=== PATIENT | male | born 1970 | race Caucasian/White ===

== ENCOUNTER 2021-08-21 09:23 | Inpatient (IN) | payer MEDICARE, MEDICAID ==
[2021-08-21] MEDS: Dextrose 5% in Water 1,000 ML IV SCH ×2 (11:15→21:05)
[2021-08-21] MEDS ORDERED: Atorvastatin Calcium 20 MG TAB PO SCH (11:44)
[2021-08-21] MEDS ORDERED: Levothyroxine Sodium 75 MCG TAB PO SCH (11:44)
[2021-08-21 16:49] LABS: Anion Gap 12 mmol/L (10-20); BUN (Urea Nitrogen) 38 mg/dL (8.4-25.7); Calc. Creatinine Clearance 49 mL/min (70-130); Calcium 8.5 mg/dL (7.8-10.44); Carbon Dioxide 30 mmol/L (22-29); Chloride 113 mmol/L (98-107); Glucose 143 mg/dL (70-105); Potassium 3.8 mmol/L (3.5-5.1); Sodium 151 mmol/L (136-145)
[2021-08-21] MEDS ORDERED: OXcarbazepine 300 MG TAB PO SCH (18:00)
[2021-08-21] MEDS ORDERED: Cholecalciferol 1,000 UNITS (25 MCG) TAB PER TUBE SCH (18:15)
[2021-08-21] MEDS ORDERED: Venlafaxine HCl XR 150 MG CAP PO SCH (18:15)
[2021-08-21] MEDS: Atorvastatin Calcium 20 MG TAB PER TUBE SCH (21:06)
[2021-08-22] MEDS: Dextrose 5% in Water 1,000 ML IV SCH ×3 (04:17→23:16)
[2021-08-22 04:20] VITALS: BMI 25.9
[2021-08-22 04:49] LABS: Anion Gap 11 mmol/L (10-20); BUN (Urea Nitrogen) 31 mg/dL (8.4-25.7); Calc. Creatinine Clearance 57 mL/min (70-130); Calcium 8.4 mg/dL (7.8-10.44); Carbon Dioxide 30 mmol/L (22-29); Chloride 112 mmol/L (98-107); Glucose 118 mg/dL (70-105); Sodium 149 mmol/L (136-145)
[2021-08-22 05:02] LABS: #Eosinphils 0.1 thou/uL (0.0-0.7); #Lymphocytes 1.4 thou/uL (1.20-3.40); #Monocytes 0.7 thou/uL (0.11-0.59); #Neutrophils 3.3 thou/uL (1.40-6.50); %Basophils 0.7 % (0.0-1.0); %Eosinophils 1.3 % (0.0-10.0); %Monocytes 12.2 % (0.0-10.0); %Neutrophils 59.8 % (42.0-75.0); Hemoglobin 11.4 g/dL (14.0-18.0); Mean Corpuscular HGB CONC 30.8 g/dL (32.0-36.0); Mean Corpuscular Hemoglobin 33.3 pg (27.0-31.0); Mean Platelet Volume 9.5 fL (7.4-10.4); Platelet Count 225 thou/uL (130-400); RBC Distribution Width 15.6 % (11.5-14.5); Red Blood Cell (RBC) Count 3.42 mill/uL (4.70-6.10); White Blood Cell (WBC) Count 5.5 thou/uL (4.8-10.8)
[2021-08-22] MEDS: Levothyroxine Sodium 75 MCG TAB PER TUBE SCH (06:03)
[2021-08-22] MEDS: Venlafaxine HCl XR 150 MG CAP PO SCH (09:14)
[2021-08-22] MEDS: Cholecalciferol 1,000 UNITS (25 MCG) TAB PER TUBE SCH (09:14)
[2021-08-22] MEDS: OXcarbazepine 300 MG TAB PO SCH (09:14)
[2021-08-22] MEDS: Silodosin 8 MG CAP PO SCH (09:53)
[2021-08-22] MEDS: Atorvastatin Calcium 20 MG TAB PER TUBE SCH (21:04)
[2021-08-23] MEDS: Levothyroxine Sodium 75 MCG TAB PER TUBE SCH (05:08)
[2021-08-23 05:49] LABS: Anion Gap 14 mmol/L (10-20); BUN (Urea Nitrogen) 27 mg/dL (8.4-25.7); Calc. Creatinine Clearance 62 mL/min (70-130); Calcium 8.3 mg/dL (7.8-10.44); Carbon Dioxide 25 mmol/L (22-29); Chloride 107 mmol/L (98-107); Glucose 100 mg/dL (70-105); Potassium 4.6 mmol/L (3.5-5.1); Sodium 141 mmol/L (136-145)
[2021-08-23] MEDS: Venlafaxine HCl XR 150 MG CAP PO SCH (09:09)
[2021-08-23] MEDS: Cholecalciferol 1,000 UNITS (25 MCG) TAB PER TUBE SCH (09:09)
[2021-08-23] MEDS: OXcarbazepine 300 MG TAB PO SCH (09:09)
[2021-08-23] MEDS: Silodosin 8 MG CAP PO SCH (09:09)
[2021-08-23] MEDS: Dextrose 5% in Water 1,000 ML IV SCH (11:08)
[2021-08-23 20:04] VITALS: BP 110/62; TEMP 98.7
== END 2021-08-23 18:09 | DRG 640 ==
LOC: 3SE 11:21 → 2NO 22:10
PROVIDERS: ADMIT Internal Medicine; ATTEND Hospitalist
DX: E87.0 Hyperosmolality and hypernatremia (principal); G93.41 Metabolic encephalopathy; E03.9 Hypothyroidism, unspecified; E78.5 Hyperlipidemia, unspecified; F31.9 Bipolar disorder, unspecified; F20.9 Schizophrenia, unspecified; R06.81 Apnea, not elsewhere classified; I10 Essential (primary) hypertension; N40.0 Benign prostatic hyperplasia without lower urinary tract symptoms; Q90.9 Down syndrome, unspecified; Z93.1 Gastrostomy status
CPT/HCPCS: 36415; 36416; 70450; 71045; 80048; 80053; 82550; 82553; 83735; 83880; 84484; 85025; 85610; 85730; 93005; 94760; J7070; U0003; U0005

== ENCOUNTER 2021-09-06 04:55 | Inpatient (IN) | payer MEDICARE, MEDICAID ==
[2021-09-06 05:28] LABS: #Lymphocytes 0.9 thou/uL (1.20-3.40); #Neutrophils 13.1 thou/uL (1.40-6.50); %Basophils 0.1 % (0.0-1.0); %Eosinophils 0.2 % (0.0-10.0); %Lymphocytes 5.9 % (21.0-51.0); %Monocytes 6.7 % (0.0-10.0); Hemoglobin 9.5 g/dL (14.0-18.0); Mean Corpuscular HGB CONC 33.7 g/dL (32.0-36.0); Mean Platelet Volume 9.6 fL (7.4-10.4); Platelet Count 202 thou/uL (130-400); RBC Distribution Width 15.5 % (11.5-14.5); Red Blood Cell (RBC) Count 2.71 mill/uL (4.70-6.10)
[2021-09-06] MEDS ORDERED: Fentanyl 100 MCG/2 ML VIAL ONE (06:11)
[2021-09-06] MEDS ORDERED: Dextrose 5% in Water 1,000 ML IV PRN (06:15)
[2021-09-06] MEDS ORDERED: Dextrose 50% Abboject 50 ML SYRINGE SLOW IVP PRN (06:15)
[2021-09-06] MEDS ORDERED: Morphine 4 MG/ML VIAL SLOW IVP PRN (06:15)
[2021-09-06] MEDS ORDERED: hydrALAZINE 20 MG/ML VIAL SLOW IVP PRN (06:15)
[2021-09-06] MEDS ORDERED: traMADol HCl 50 MG TAB PO PRN ×2 (06:21)
[2021-09-06 08:40] LABS: SARS-CoV-2 NAA Rapid Test Not Detected (NotDetected)
[2021-09-06] MEDS: Senokot S 8.6-50 MG TAB PO SCH ×2 (11:08→20:49)
[2021-09-06] MEDS: Tamsulosin HCl 0.4 MG CAP PO SCH (11:08)
[2021-09-06] MEDS: Polyethylene Glycol 3350 17 GM Packet PO SCH (11:08)
[2021-09-06] MEDS: Acetaminophen 650 MG/20.3 ML UDCUP PER TUBE SCH ×3 (11:09→18:05)
[2021-09-06] MEDS: Sodium Chloride 0.9% 1,000 ML IV SCH ×3 (11:09→19:49)
[2021-09-06] MEDS: Famotidine 20 MG TAB PO SCH ×2 (11:09→20:49)
[2021-09-06] MEDS ORDERED: Docusate Sodium 100 MG/10 ML UDCUP PER TUBE SCH (12:01)
[2021-09-06] MEDS ORDERED: FLU VACC QS2021-22(6MOS UP)/PF 60 MCG/0.5 ML SYRINGE IM ONE (12:15)
[2021-09-06 13:41] LABS: Hemoglobin 8.8 g/dL (14.0-18.0); Platelet Count 173 thou/uL (130-400)
[2021-09-06] MEDS: Ondansetron PF 4 MG/2 ML Vial IVP PRN (14:37)
[2021-09-06] MEDS ORDERED: Fleet Enema 133 ML BOT PR SCH (15:45)
[2021-09-06 18:56] LABS: Hemoglobin 8.7 g/dL (14.0-18.0); Platelet Count 172 thou/uL (130-400)
[2021-09-06 19:46] VITALS: BMI 28.0
[2021-09-07] MEDS: Acetaminophen 650 MG/20.3 ML UDCUP PER TUBE SCH ×4 (00:22→17:41)
[2021-09-07] MEDS: Ondansetron PF 4 MG/2 ML Vial IVP PRN ×3 (03:28→19:30)
[2021-09-07 04:16] LABS: Platelet Count 182 thou/uL (130-400)
[2021-09-07] MEDS: Sodium Chloride 0.9% 1,000 ML IV SCH ×3 (06:13→19:15)
[2021-09-07] MEDS: Famotidine 20 MG TAB PO SCH ×2 (08:43→20:34)
[2021-09-07] MEDS: Tamsulosin HCl 0.4 MG CAP PO SCH (08:43)
[2021-09-07] MEDS: Senokot S 8.6-50 MG TAB PO SCH ×2 (08:43→20:34)
[2021-09-07] MEDS: Polyethylene Glycol 3350 17 GM Packet PO SCH (08:44)
[2021-09-07 12:01] LABS: #Lymphocytes 1.5 thou/uL (1.20-3.40); #Monocytes 2.1 thou/uL (0.11-0.59); #Neutrophils 10.9 thou/uL (1.40-6.50); %Basophils 0.2 % (0.0-1.0); %Eosinophils 0.2 % (0.0-10.0); %Monocytes 14.2 % (0.0-10.0); %Neutrophils 75.4 % (42.0-75.0); Hemoglobin 7.1 g/dL (14.0-18.0); Mean Corpuscular HGB CONC 33.5 g/dL (32.0-36.0); Mean Corpuscular Hemoglobin 34.9 pg (27.0-31.0); Mean Platelet Volume 9.3 fL (7.4-10.4); Platelet Count 170 thou/uL (130-400); RBC Distribution Width 15.5 % (11.5-14.5); Red Blood Cell (RBC) Count 2.02 mill/uL (4.70-6.10); White Blood Cell (WBC) Count 14.5 thou/uL (4.8-10.8)
[2021-09-07 12:28] LABS: Anion Gap 15 mmol/L (10-20); BUN (Urea Nitrogen) 44 mg/dL (8.4-25.7); Calc. Creatinine Clearance 36 mL/min (70-130); Calcium 7.8 mg/dL (7.8-10.44); Carbon Dioxide 22 mmol/L (22-29); Chloride 108 mmol/L (98-107); Glucose 80 mg/dL (70-105); Sodium 141 mmol/L (136-145)
[2021-09-07 13:23] LABS: Bacteria/HPF None Seen HPF (None Seen); Bilirubin Negative (Negative); Blood, Urine Trace (Negative); Clarity Clear (Clear); Glucose, Urine (Dipstick) Normal (Negative); Ketone, Urine Negative (Negative); Leukocyte Negative Leu/uL (Negative); Nitrite Negative (Negative); Protein, Urine (Dipstick) Negative (Neg-Trace); RBC/HPF 0-3 HPF (0-3); Specific Gravity, Urine 1.013 (1.002-1.036); Squamous Epithelial 0-3 HPF (0-3); Urobilinogen Normal mg/dL (Less than 2); WBC/HPF 0-3 HPF (0-3)
[2021-09-07 13:24] LABS: Urine Culture Reflex No No
[2021-09-07] MEDS ORDERED: Piperacillin/Tazobactam 3.375 GM in Sodium Chloride 0.9% 100 ML IVPB SCH ×2 (15:45→16:15)
[2021-09-07] MEDS ORDERED: Phytonadione 10 MG/ML AMP SLOW IVP SCH (18:15)
[2021-09-07] MEDS ORDERED: ADMIXTURE FEE IV SCH (18:30)
[2021-09-07] MEDS ORDERED: HUMAN PROTHROMBIN COMPLX IV SCH ×2 (18:30→19:00)
[2021-09-07] MEDS ORDERED: [UNRECOGNIZED DRUG - OTHER] IV SCH (19:00)
[2021-09-07] MEDS ORDERED: HUM PROTHROMBIN CPLX IV SCH (19:00)
[2021-09-07] MEDS: Piperacillin/Tazobactam 3.375 GM in Sodium Chloride 0.9% 100 ML IVPB SCH (20:34)
[2021-09-08] MEDS: Acetaminophen 650 MG/20.3 ML UDCUP PER TUBE SCH ×5 (00:04→23:58)
[2021-09-08] MEDS: Piperacillin/Tazobactam 3.375 GM in Sodium Chloride 0.9% 100 ML IVPB SCH ×3 (05:19→20:48)
[2021-09-08 06:05] LABS: #Lymphocytes 1.2 thou/uL (1.20-3.40); #Monocytes 1.4 thou/uL (0.11-0.59); #Neutrophils 9.4 thou/uL (1.40-6.50); %Basophils 0.1 % (0.0-1.0); %Eosinophils 0.2 % (0.0-10.0); %Lymphocytes 10.3 % (21.0-51.0); %Monocytes 11.3 % (0.0-10.0); %Neutrophils 78.2 % (42.0-75.0); Hemoglobin 6.5 g/dL (14.0-18.0); Mean Corpuscular HGB CONC 33.7 g/dL (32.0-36.0); Mean Corpuscular Hemoglobin 34.5 pg (27.0-31.0); Mean Platelet Volume 9.8 fL (7.4-10.4); Platelet Count 146 thou/uL (130-400); RBC Distribution Width 16.8 % (11.5-14.5); Red Blood Cell (RBC) Count 1.87 mill/uL (4.70-6.10)
[2021-09-08 06:14] LABS: Anion Gap 13 mmol/L (10-20); BUN (Urea Nitrogen) 36 mg/dL (8.4-25.7); Calc. Creatinine Clearance 46 mL/min (70-130); Carbon Dioxide 23 mmol/L (22-29); Chloride 113 mmol/L (98-107); Glucose 90 mg/dL (70-105); Potassium 3.8 mmol/L (3.5-5.1); Sodium 145 mmol/L (136-145)
[2021-09-08] MEDS: Famotidine 20 MG TAB PO SCH ×2 (09:10→20:49)
[2021-09-08] MEDS: Polyethylene Glycol 3350 17 GM Packet PO SCH (09:11)
[2021-09-08] MEDS: Tamsulosin HCl 0.4 MG CAP PO SCH (09:11)
[2021-09-08] MEDS: Senokot S 8.6-50 MG TAB PO SCH ×2 (09:11→20:49)
[2021-09-08] MEDS: Sodium Chloride 0.9% 1,000 ML IV SCH (09:12)
[2021-09-08] MEDS: Sodium Chloride 0.45% 1,000 ML IV SCH ×2 (13:25→20:49)
[2021-09-08] MEDS ORDERED: Iopamidol-370 76% 500 ML 1 ML ONE (15:52)
[2021-09-08 16:09] LABS: Hemoglobin 7.6 g/dL (14.0-18.0); Mean Corpuscular HGB CONC 34.2 g/dL (32.0-36.0); Mean Corpuscular Hemoglobin 34.3 pg (27.0-31.0); Mean Platelet Volume 9.3 fL (7.4-10.4); Platelet Count 132 thou/uL (130-400); RBC Distribution Width 17.7 % (11.5-14.5); White Blood Cell (WBC) Count 10.1 thou/uL (4.8-10.8)
[2021-09-09] MEDS: Piperacillin/Tazobactam 3.375 GM in Sodium Chloride 0.9% 100 ML IVPB SCH ×2 (03:30→12:45)
[2021-09-09] MEDS: Sodium Chloride 0.45% 1,000 ML IV SCH (06:02)
[2021-09-09] MEDS: Acetaminophen 650 MG/20.3 ML UDCUP PER TUBE SCH ×4 (06:02→23:34)
[2021-09-09] MEDS: Cyclobenzaprine 10 MG TAB PO PRN ×2 (06:07→22:13)
[2021-09-09 06:55] LABS: Hemoglobin 7.5 g/dL (14.0-18.0); Mean Corpuscular HGB CONC 34.9 g/dL (32.0-36.0); Mean Platelet Volume 9.7 fL (7.4-10.4); Platelet Count 141 thou/uL (130-400); RBC Distribution Width 17.3 % (11.5-14.5); Red Blood Cell (RBC) Count 2.13 mill/uL (4.70-6.10); White Blood Cell (WBC) Count 9.2 thou/uL (4.8-10.8)
[2021-09-09 07:33] LABS: Anion Gap 14 mmol/L (10-20); BUN (Urea Nitrogen) 26 mg/dL (8.4-25.7); Calc. Creatinine Clearance 51 mL/min (70-130); Calcium 7.8 mg/dL (7.8-10.44); Carbon Dioxide 23 mmol/L (22-29); Chloride 119 mmol/L (98-107); Glucose 98 mg/dL (70-105); Potassium 3.2 mmol/L (3.5-5.1); Sodium 153 mmol/L (136-145)
[2021-09-09] MEDS: Polyethylene Glycol 3350 17 GM Packet PO SCH (09:25)
[2021-09-09] MEDS: Senokot S 8.6-50 MG TAB PO SCH ×2 (09:25→20:28)
[2021-09-09] MEDS: Famotidine 20 MG TAB PO SCH ×2 (09:26→20:28)
[2021-09-09] MEDS: Tamsulosin HCl 0.4 MG CAP PO SCH (09:26)
[2021-09-09 12:33] LABS: #Lymphocytes 1.2 thou/uL (1.20-3.40); #Monocytes 1.1 thou/uL (0.11-0.59); #Neutrophils 7.1 thou/uL (1.40-6.50); %Basophils 0.2 % (0.0-1.0); %Eosinophils 0.2 % (0.0-10.0); %Monocytes 11.3 % (0.0-10.0); %Neutrophils 75.4 % (42.0-75.0); Hemoglobin 8.1 g/dL (14.0-18.0); Mean Corpuscular HGB CONC 34.6 g/dL (32.0-36.0); Mean Corpuscular Hemoglobin 34.8 pg (27.0-31.0); Mean Platelet Volume 9.9 fL (7.4-10.4); Platelet Count 154 thou/uL (130-400); RBC Distribution Width 17.5 % (11.5-14.5); Red Blood Cell (RBC) Count 2.34 mill/uL (4.70-6.10); White Blood Cell (WBC) Count 9.4 thou/uL (4.8-10.8)
[2021-09-09 12:54] LABS: Iron 82 ug/dL (65-175); Iron Binding Capacity, Total 164 mcg/dL (261-462)
[2021-09-09 13:24] LABS: Ferritin 367.14 ng/mL (22-322); Thyroid Stimulating Hormone 1.6721 uIU/mL (0.35-4.94)
[2021-09-09] MEDS ORDERED: Dextrose 5% in Water 1,000 ML IV SCH (15:15)
[2021-09-09] MEDS: Amoxicillin/Potassium Clav 875 MG TAB PO SCH (20:28)
[2021-09-10] MEDS: Acetaminophen 650 MG/20.3 ML UDCUP PER TUBE SCH ×3 (05:55→18:47)
[2021-09-10 06:01] LABS: #Monocytes 1.2 thou/uL (0.11-0.59); #Neutrophils 7.4 thou/uL (1.40-6.50); %Basophils 0.2 % (0.0-1.0); %Eosinophils 0.2 % (0.0-10.0); %Lymphocytes 10.6 % (21.0-51.0); %Monocytes 12.2 % (0.0-10.0); %Neutrophils 76.7 % (42.0-75.0); Hemoglobin 8.4 g/dL (14.0-18.0); Mean Corpuscular HGB CONC 33.8 g/dL (32.0-36.0); Mean Corpuscular Hemoglobin 34.5 pg (27.0-31.0); Mean Platelet Volume 9.4 fL (7.4-10.4); Platelet Count 181 thou/uL (130-400); RBC Distribution Width 17.4 % (11.5-14.5); Red Blood Cell (RBC) Count 2.43 mill/uL (4.70-6.10); White Blood Cell (WBC) Count 9.7 thou/uL (4.8-10.8)
[2021-09-10 06:39] LABS: ALT (SGPT) 31 U/L (8-55); AST (SGOT) 40 U/L (5-34); Albumin 2.8 g/dL (3.5-5.0); Alkaline Phosphatase 18 U/L (40-110); Anion Gap 13 mmol/L (10-20); BUN (Urea Nitrogen) 23 mg/dL (8.4-25.7); Calc. Creatinine Clearance 56 mL/min (70-130); Calcium 7.9 mg/dL (7.8-10.44); Carbon Dioxide 24 mmol/L (22-29); Chloride 125 mmol/L (98-107); Globulin 3.2 g/dL (2.4-3.5); Glucose 119 mg/dL (70-105); Potassium 3.5 mmol/L (3.5-5.1); Sodium 158 mmol/L (136-145)
[2021-09-10] MEDS: Famotidine 20 MG TAB PO SCH ×2 (08:11→20:40)
[2021-09-10] MEDS: Senokot S 8.6-50 MG TAB PO SCH ×2 (08:11→20:40)
[2021-09-10] MEDS: Amoxicillin/Potassium Clav 875 MG TAB PO SCH ×2 (08:11→20:40)
[2021-09-10] MEDS: Polyethylene Glycol 3350 17 GM Packet PO SCH (08:11)
[2021-09-10] MEDS: Tamsulosin HCl 0.4 MG CAP PO SCH (08:11)
[2021-09-10] MEDS: Dextrose 5% in Water 1,000 ML IV SCH ×2 (13:47→18:47)
[2021-09-11] MEDS: Acetaminophen 650 MG/20.3 ML UDCUP PER TUBE SCH ×4 (01:06→20:41)
[2021-09-11] MEDS: Dextrose 5% in Water 1,000 ML IV SCH ×2 (01:32→18:12)
[2021-09-11 05:51] LABS: #Eosinphils 0.1 thou/uL (0.0-0.7); #Lymphocytes 1.2 thou/uL (1.20-3.40); #Monocytes 1.2 thou/uL (0.11-0.59); #Neutrophils 7.2 thou/uL (1.40-6.50); %Basophils 0.3 % (0.0-1.0); %Lymphocytes 12.1 % (21.0-51.0); %Monocytes 12.7 % (0.0-10.0); %Neutrophils 73.9 % (42.0-75.0); Hemoglobin 8.8 g/dL (14.0-18.0); Mean Corpuscular HGB CONC 32.3 g/dL (32.0-36.0); Mean Corpuscular Hemoglobin 33.7 pg (27.0-31.0); Mean Platelet Volume 9.6 fL (7.4-10.4); Platelet Count 204 thou/uL (130-400); RBC Distribution Width 17.8 % (11.5-14.5); Red Blood Cell (RBC) Count 2.62 mill/uL (4.70-6.10); White Blood Cell (WBC) Count 9.7 thou/uL (4.8-10.8)
[2021-09-11 06:12] LABS: Albumin 2.8 g/dL (3.5-5.0); Alkaline Phosphatase 18 U/L (40-110); Anion Gap 14 mmol/L (10-20); BUN (Urea Nitrogen) 23 mg/dL (8.4-25.7); Calc. Creatinine Clearance 62 mL/min (70-130); Carbon Dioxide 23 mmol/L (22-29); Chloride 120 mmol/L (98-107); Globulin 3.4 g/dL (2.4-3.5); Glucose 112 mg/dL (70-105); Potassium 3.7 mmol/L (3.5-5.1); Protein, Total 6.2 g/dL (6.0-8.3); Sodium 153 mmol/L (136-145)
[2021-09-11 06:13] LABS: ALT (SGPT) 31 U/L (8-55); AST (SGOT) 32 U/L (5-34)
[2021-09-11] MEDS: Polyethylene Glycol 3350 17 GM Packet PO SCH (09:48)
[2021-09-11] MEDS: Senokot S 8.6-50 MG TAB PO SCH ×2 (09:48→20:41)
[2021-09-11] MEDS: Tamsulosin HCl 0.4 MG CAP PO SCH (09:49)
[2021-09-11] MEDS: Famotidine 20 MG TAB PO SCH ×2 (09:49→20:41)
[2021-09-11] MEDS: Amoxicillin/Potassium Clav 875 MG TAB PO SCH ×2 (09:49→20:41)
[2021-09-11 11:32] LABS: Anion Gap 14 mmol/L (10-20); BUN (Urea Nitrogen) 22 mg/dL (8.4-25.7); Calc. Creatinine Clearance 68 mL/min (70-130); Calcium 8.2 mg/dL (7.8-10.44); Carbon Dioxide 22 mmol/L (22-29); Chloride 121 mmol/L (98-107); Glucose 108 mg/dL (70-105); Potassium 3.5 mmol/L (3.5-5.1); Sodium 153 mmol/L (136-145)
[2021-09-11] MEDS: Cyclobenzaprine 10 MG TAB PO PRN (20:41)
[2021-09-12] MEDS: Acetaminophen 650 MG/20.3 ML UDCUP PER TUBE SCH ×3 (00:40→12:53)
[2021-09-12 06:39] LABS: Anion Gap 15 mmol/L (10-20); BUN (Urea Nitrogen) 23 mg/dL (8.4-25.7); Calc. Creatinine Clearance 71 mL/min (70-130); Carbon Dioxide 20 mmol/L (22-29); Chloride 116 mmol/L (98-107); Glucose 101 mg/dL (70-105); Potassium 4.4 mmol/L (3.5-5.1); Sodium 147 mmol/L (136-145)
[2021-09-12] MEDS: Dextrose 5% in Water 1,000 ML IV SCH (07:19)
[2021-09-12] MEDS: Senokot S 8.6-50 MG TAB PO SCH (08:53)
[2021-09-12] MEDS: Tamsulosin HCl 0.4 MG CAP PO SCH (08:53)
[2021-09-12] MEDS: Amoxicillin/Potassium Clav 875 MG TAB PO SCH (08:53)
[2021-09-12] MEDS: Famotidine 20 MG TAB PO SCH (08:53)
[2021-09-12 10:37] LABS: Hemoglobin 8.5 g/dL (14.0-18.0)
[2021-09-12] MEDS: Polyethylene Glycol 3350 17 GM Packet PO SCH (12:52)
[2021-09-12 15:56] VITALS: BP 97/65; TEMP 98.3
== END 2021-09-12 16:00 | DRG 913 ==
LOC: ERS 04:55 → SURG B 06:15 → OBSVTOIN 09-07 19:18
PROVIDERS: ADMIT Internal Medicine; ATTEND Internal Medicine
PROC: 30233N1 Transfusion of Nonautologous Red Blood Cells into Peripheral Vein, Percutaneous Approach (ICD-10-PCS; 2021-09-07)
PROC: 30283B1 Transfusion of Nonautologous 4-Factor Prothrombin Complex Concentrate into Vein, Percutaneous Approach (ICD-10-PCS; 2021-09-07)
PROC: 30233L1 Transfusion of Nonautologous Fresh Plasma into Peripheral Vein, Percutaneous Approach (ICD-10-PCS; principal; 2021-09-08)
PROC: 30233K1 Transfusion of Nonautologous Frozen Plasma into Peripheral Vein, Percutaneous Approach (ICD-10-PCS; 2021-09-08)
DX: S36.892A Contusion of other intra-abdominal organs, initial encounter (principal); G93.41 Metabolic encephalopathy; R57.8 Other shock; D62 Acute posthemorrhagic anemia; N17.9 Acute kidney failure, unspecified; E87.0 Hyperosmolality and hypernatremia; R65.10 Systemic inflammatory response syndrome (SIRS) of non-infectious origin without acute organ dysfunction; D68.9 Coagulation defect, unspecified; E87.1 Hypo-osmolality and hyponatremia; E46 Unspecified protein-calorie malnutrition; S36.899A Unspecified injury of other intra-abdominal organs, initial encounter; N40.0 Benign prostatic hyperplasia without lower urinary tract symptoms; E03.9 Hypothyroidism, unspecified; I10 Essential (primary) hypertension; E78.5 Hyperlipidemia, unspecified; F20.9 Schizophrenia, unspecified; K59.00 Constipation, unspecified; R33.9 Retention of urine, unspecified; W19.XXXA Unspecified fall, initial encounter; F31.9 Bipolar disorder, unspecified; Z20.822 Contact with and (suspected) exposure to COVID-19; Z86.718 Personal history of other venous thrombosis and embolism; Z88.8 Allergy status to other drugs, medicaments and biological substances; Z86.711 Personal history of pulmonary embolism; Y92.89 Other specified places as the place of occurrence of the external cause; Q90.9 Down syndrome, unspecified; Z79.01 Long term (current) use of anticoagulants
CPT/HCPCS: 36415; 36430; 74177; 80048; 80053; 81001; 82607; 82728; 82746; 83540; 83550; 84443; 85014; 85018; 85025; 85027; 86850; 86900; 86901; 87040; 93970; 96374; 96375; 96376; G0378; J2405; J2543; J3010; J3430; J3490; J7050; J7070; J7168; P9016; P9059; Q9967; U0002; U0003; U0005

== ENCOUNTER 2021-10-27 14:36 | Observation (INO) | payer MEDICARE, MEDICAID ==
[2021-10-27 15:36] LABS: #Basophils 0.1 thou/uL (0.0-0.2); #Eosinphils 0.1 thou/uL (0.0-0.7); #Lymphocytes 1.5 thou/uL (1.20-3.40); #Monocytes 0.8 thou/uL (0.11-0.59); %Basophils 1.5 % (0.0-1.0); %Eosinophils 1.7 % (0.0-10.0); %Lymphocytes 27.1 % (21.0-51.0); %Monocytes 14.9 % (0.0-10.0); %Neutrophils 54.9 % (42.0-75.0); Hemoglobin 12.3 g/dL (14.0-18.0); Mean Platelet Volume 8.5 fL (7.4-10.4); Platelet Count 248 thou/uL (130-400); RBC Distribution Width 15.5 % (11.5-14.5); Red Blood Cell (RBC) Count 3.42 mill/uL (4.70-6.10); White Blood Cell (WBC) Count 5.5 thou/uL (4.8-10.8)
[2021-10-27 16:29] LABS: ALT (SGPT) 14 U/L (8-55); AST (SGOT) 21 U/L (5-34); Albumin 3.2 g/dL (3.5-5.0); Alkaline Phosphatase 26 U/L (40-110); Anion Gap 15 mmol/L (10-20); BUN (Urea Nitrogen) 20 mg/dL (8.4-25.7); Bilirubin, Total 0.3 mg/dL (0.2-1.2); CK (CPK) 45 U/L (30-200); Calc. Creatinine Clearance 0 mL/min (70-130); Calcium 9.7 mg/dL (7.8-10.44); Carbon Dioxide 23 mmol/L (22-29); Chloride 106 mmol/L (98-107); Globulin 4.2 g/dL (2.4-3.5); Glucose 88 mg/dL (70-105); Potassium 3.9 mmol/L (3.5-5.1); Protein, Total 7.4 g/dL (6.0-8.3); Sodium 140 mmol/L (136-145)
[2021-10-27 17:17] LABS: Bilirubin Negative (Negative); Blood, Urine Negative (Negative); Clarity Clear (Clear); Glucose, Urine (Dipstick) Normal (Negative); Ketone, Urine Negative (Negative); Leukocyte Negative Leu/uL (Negative); Nitrite Negative (Negative); Protein, Urine (Dipstick) Negative (Neg-Trace); Specific Gravity, Urine 1.007 (1.002-1.036); Urobilinogen Normal mg/dL (Less than 2); pH, Urine 6.5 (5.0-9.0)
[2021-10-27] MEDS ORDERED: Fentanyl 100 MCG/2 ML VIAL ONE (17:20)
[2021-10-27 18:27] LABS: INR-International Normal Ratio 1.2; PTT 31.4 sec (22.9-36.1); Prothrombin Time 15.1 sec (12.0-14.7)
[2021-10-27 21:17] VITALS: BMI 23.5
[2021-10-27] MEDS ORDERED: Acetaminophen 650 MG/20.3 ML UDCUP PER TUBE PRN (22:32)
[2021-10-27] MEDS ORDERED: HYDROcodone/Acetaminophen 10/325 mg Tablet PO PRN (22:44)
[2021-10-27] MEDS ORDERED: Acetaminophen 325 MG TAB PO PRN (22:44)
[2021-10-27] MEDS ORDERED: Ondansetron PF 4 MG/2 ML Vial IVP PRN (22:44)
[2021-10-27] MEDS: Sodium Chloride 0.9% 1,000 ML IV SCH (23:22)
[2021-10-28] MEDS ORDERED: Lorazepam 2 MG/ML VIAL SLOW IVP PRN (01:53)
[2021-10-28] MEDS ORDERED: OXcarbazepine 300 MG TAB PER TUBE SCH ×3 (02:15→09:00)
[2021-10-28 04:51] LABS: Hemoglobin 11.2 g/dL (14.0-18.0); Mean Corpuscular Hemoglobin 35.7 pg (27.0-31.0); Mean Platelet Volume 8.4 fL (7.4-10.4); Platelet Count 235 thou/uL (130-400); RBC Distribution Width 15.3 % (11.5-14.5); Red Blood Cell (RBC) Count 3.14 mill/uL (4.70-6.10); White Blood Cell (WBC) Count 3.2 thou/uL (4.8-10.8)
[2021-10-28 05:02] LABS: ALT (SGPT) 14 U/L (8-55); AST (SGOT) 17 U/L (5-34); Albumin 2.9 g/dL (3.5-5.0); Alkaline Phosphatase 23 U/L (40-110); Anion Gap 13 mmol/L (10-20); BUN (Urea Nitrogen) 21 mg/dL (8.4-25.7); Bilirubin, Total 0.3 mg/dL (0.2-1.2); Calc. Creatinine Clearance 51 mL/min (70-130); Calcium 9.5 mg/dL (7.8-10.44); Carbon Dioxide 26 mmol/L (22-29); Chloride 106 mmol/L (98-107); Glucose 115 mg/dL (70-105); Potassium 3.6 mmol/L (3.5-5.1); Protein, Total 6.9 g/dL (6.0-8.3); Sodium 141 mmol/L (136-145)
[2021-10-28 05:24] LABS: Band 4 % (5-11); Eosinophils 4 % (0-10); Lymphocytes 27 % (21-51); MDiff Complete? YES; Monocytes 12 % (0-10); Neutrophil 52 % (42-75)
[2021-10-28] MEDS: Levothyroxine Sodium 75 MCG TAB PER TUBE SCH (05:29)
[2021-10-28] MEDS ORDERED: FLU VACC QS2021-22(6MOS UP)/PF 60 MCG/0.5 ML SYRINGE IM ONE (09:00)
[2021-10-28] MEDS: Heparin 5,000 UNITS/ML VIAL SC SCH ×3 (09:07→21:02)
[2021-10-28] MEDS: Folic Acid 1 MG TAB PER TUBE SCH (09:07)
[2021-10-28] MEDS: Atorvastatin Calcium 20 MG TAB PER TUBE SCH (09:07)
[2021-10-28] MEDS: Benztropine 1 MG TAB PER TUBE SCH ×2 (09:08→21:04)
[2021-10-28] MEDS: Silodosin 8 MG CAP PO SCH (09:08)
[2021-10-28] MEDS: Venlafaxine HCl XR 75 MG CAP PO SCH (09:08)
[2021-10-28] MEDS ORDERED: Lorazepam 2 MG/ML VIAL SLOW IVP SCH (12:00)
[2021-10-28 12:11] LABS: SARS-CoV-2 PCR by NAA Not Detected (NotDetected)
[2021-10-28] MEDS: Sodium Chloride 0.9% 1,000 ML IV SCH (16:10)
[2021-10-28] MEDS ORDERED: OXcarbazepine 300 MG TAB PO SCH (21:00)
[2021-10-28] MEDS: OXcarbazepine 300 MG TAB PER TUBE SCH (21:04)
[2021-10-29] MEDS: Levothyroxine Sodium 75 MCG TAB PER TUBE SCH (06:12)
[2021-10-29 07:55] VITALS: BP 105/73; TEMP 97.9
[2021-10-29 08:14] LABS: % Free PSA Greater than 30.0 % (.); Total PSA Less than 0.1 ng/mL (0.0-4.0)
[2021-10-29] MEDS: Benztropine 1 MG TAB PER TUBE SCH (08:52)
[2021-10-29] MEDS: OXcarbazepine 300 MG TAB PER TUBE SCH (08:53)
[2021-10-29] MEDS: Silodosin 8 MG CAP PO SCH (08:53)
[2021-10-29] MEDS: Atorvastatin Calcium 20 MG TAB PER TUBE SCH (08:53)
[2021-10-29] MEDS: Heparin 5,000 UNITS/ML VIAL SC SCH (08:53)
[2021-10-29] MEDS: Folic Acid 1 MG TAB PER TUBE SCH (08:53)
[2021-10-29] MEDS: Venlafaxine HCl XR 75 MG CAP PO SCH (08:54)
== END 2021-10-29 10:20 ==
LOC: ERS 14:36 → NEURO 17:53
PROVIDERS: ADMIT Internal Medicine; ATTEND Internal Medicine
DX: G40.909 Epilepsy, unspecified, not intractable, without status epilepticus (principal); Q90.9 Down syndrome, unspecified; I10 Essential (primary) hypertension; N17.9 Acute kidney failure, unspecified; F72 Severe intellectual disabilities; F31.9 Bipolar disorder, unspecified; F20.9 Schizophrenia, unspecified; N40.0 Benign prostatic hyperplasia without lower urinary tract symptoms; E03.9 Hypothyroidism, unspecified; M89.9 Disorder of bone, unspecified; Z79.899 Other long term (current) drug therapy; Z88.6 Allergy status to analgesic agent; Z88.8 Allergy status to other drugs, medicaments and biological substances; Z20.822 Contact with and (suspected) exposure to COVID-19
CPT/HCPCS: 70450; 70551; 71045; 72125; 73502; 73552; 80053; 80183; 81003; 82550; 84146; 84153; 84154; 84484; 85007; 85027; 85610; 85730; 93005; 93970; 96375; G0378 ×4; U0003; U0005; 36415; 84443; 85025; J1644; J2060; J3010; J7050